=== PATIENT | female | born 1965 | race African-American/Black ===

== ENCOUNTER 2016-05-14 15:07 | Emergency (ER) | payer OTHER ==
[~2016-05-14] VITALS: Ht 157.5 cm; Wt 123.4 kg
[2016-05-14 15:09] VITALS: BP 149/103
[2016-05-14] MEDS ORDERED: DOXYCYCLINE 10100 MG PO (15:46)
== END 2016-05-14 15:51 | disposition home or self-care (01) ==
LOC: ER 15:07
DX: S01.91XD Laceration without foreign body of unspecified part of head, subsequent encounter (principal); X58.XXXD Exposure to other specified factors, subsequent encounter; I10 Essential (primary) hypertension; Z85.3 Personal history of malignant neoplasm of breast; Z90.13 Acquired absence of bilateral breasts and nipples; Z88.0 Allergy status to penicillin; Z88.1 Allergy status to other antibiotic agents; Z91.013 Allergy to seafood; Z88.8 Allergy status to other drugs, medicaments and biological substances

== ENCOUNTER 2016-11-09 13:01 | Emergency (ER) | payer OTHER ==
[~2016-11-09] VITALS: Ht 157.5 cm; Wt 145.2 kg
--- NOTE | ~2016-11-09 | EKG ---
[place] [address] [facility] [place] [address] ELECTROCARDIOGRAM REPORT Name: JOEL KAN Room #: DEP Usha#: [id number] Admission: 11/09/16 Attend Phys: Discharge: 11/09/16 Date of : 63 Report #: [id number] THIS REPORT FOR: //name// [facility] ED Test Date: 2016-11-09 Test Time: 13:44:33 Pat Name: JOEL KAN Department: Room: Gender: F Plant Reliability Engineer: : 1965 Requested By: Leonila Vázquez Order Number: [id number] MD: Gold Barragan Measurements Intervals [place] Rate: 108 P: 40 FL: 127 QRS: 3 QRSD: 91 T: 31 QT: 353 QTc: 473 Interpretive Statements Sinus tachycardia Otherwise normal tracing No previous ECG available for comparison Electronically Signed On 11-09-2016 17:21:13 CDT by Gold Barragan [email or web address] <ELECTRONICALLY SIGNED> By: Gold Barragan MD, [facility] 11/09/16 1721 1344 1344 Gold Barragan MD, FACC /EPI
[~2016-11-09 13:01] MED LIST: AMLODIPINE BESY10 MG PO; DOXYCYCLINE 10100 MG PO; IBRANCE100 MG PO; K-DUR 20 MEQ T20 MEQ PO; KEFLEX500 MG PO; LISINOPRIL40 MG PO
[2016-11-09 14:12] LABS: HEMATOCRIT 36.1 % (37.0-47.0); HEMOGLOBIN 12.2 gm/dL (12.0-15.0); MCH 35.3 pg (26.0-34.0); MCHC 33.8 g/dL (28.0-37.0); MCV 104.5 fL (80.0-100.0); PLATELET COUNT 223 thou/uL (150-400); RBC 3.46 mil/uL (4.20-5.00); RDW 16.7 % (10.5-14.5)
[2016-11-09 14:14] LABS: MANUAL DIFF YES
[2016-11-09 14:21] LABS: ANION GAP 7 mmol/L (7-16); BUN 11 mg/dL (7-18); CALCIUM 9.2 mg/dL (8.5-10.1); CHLORIDE 106 mmol/L (98-107); CO2 26 mmol/L (21-32); GLUCOSE 155 mg/dL (74-106); POTASSIUM 3.9 mmol/L (3.5-5.1); SODIUM 139 mmol/L (136-145)
[2016-11-09 14:28] LABS: APTT 22.7 Seconds (24.5-32.8)
[2016-11-09 14:30] LABS: TROPONIN-I < 0.04 ng/mL (<0.04-0.07)
[2016-11-09 14:38] LABS: ABSOLUTE NEUTROPHILS 2.4 thou/uL (1.4-8.2); TOTAL CELL COUNT 100
[2016-11-09 14:42] LABS: ANISOCYTOSIS 1+; MACROCYTES 1+
[2016-11-09 14:43] LABS: POLYCHROMASIA OCCASIONAL
[2016-11-09] MEDS ORDERED: DEXAMETHASONE1 MG PO (16:36)
[2016-11-09 16:48] VITALS: BP 133/71
== END 2016-11-09 16:50 | disposition home or self-care (01) ==
LOC: ER 13:01
PROVIDERS: Emergency Medicine
DX: G93.6 Cerebral edema (principal); R41.0 Disorientation, unspecified; I10 Essential (primary) hypertension; Z85.3 Personal history of malignant neoplasm of breast; Z85.841 Personal history of malignant neoplasm of brain; Z88.1 Allergy status to other antibiotic agents; Z91.041 Radiographic dye allergy status; Z88.0 Allergy status to penicillin; Z91.013 Allergy to seafood

== ENCOUNTER 2016-12-17 18:16 | Emergency (ER) | payer OTHER ==
[~2016-12-17] VITALS: Ht 157.5 cm; Wt 104.3 kg
--- NOTE | ~2016-12-17 | EKG ---
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
[~2016-12-17 18:16] MED LIST changes: +DEXAMETHASONE1 MG PO
[2016-12-17] MEDS ORDERED: CLEOCIN HCL150 MG PO (21:18)
[2016-12-17 21:20] LABS: HEMATOCRIT 38.1 % (37.0-47.0); HEMOGLOBIN 12.5 gm/dL (12.0-15.0); MANUAL DIFF YES; MCH 33.3 pg (26.0-34.0); MCHC 32.9 g/dL (28.0-37.0); MCV 101.3 fL (80.0-100.0); PLATELET COUNT 317 thou/uL (150-400); RBC 3.76 mil/uL (4.20-5.00); RDW 15.8 % (10.5-14.5); WBC 5.6 thou/uL (4.0-11.0)
[2016-12-17 21:34] LABS: CALCIUM 10.3 mg/dL (8.5-10.1); CREATININE 1.1 mg/dL (0.6-1.0); POTASSIUM 3.6 mmol/L (3.5-5.1)
[2016-12-17 21:40] LABS: ALBUMIN 3.4 g/dL (3.4-5.0); TOTAL BILIRUBIN 0.2 mg/dL (<0.1-1.0)
[2016-12-17 22:17] LABS: ABSOLUTE NEUTROPHILS 3.3 thou/uL (1.4-8.2); ANISOCYTOSIS SLIGHT; ATYPICAL LYMPHS 1 %; MACROCYTES SLIGHT; POLYCHROMASIA OCCASIONAL; TOTAL CELL COUNT 100
[2016-12-17 22:37] VITALS: BP 186/104
== END 2016-12-17 22:38 | disposition home or self-care (01) ==
LOC: ER 18:16
PROVIDERS: Nurse Practitioner Family
DX: K08.89 Other specified disorders of teeth and supporting structures (principal); R00.0 Tachycardia, unspecified; C79.31 Secondary malignant neoplasm of brain; I10 Essential (primary) hypertension; Z90.13 Acquired absence of bilateral breasts and nipples; Z85.3 Personal history of malignant neoplasm of breast; Z88.1 Allergy status to other antibiotic agents; Z88.0 Allergy status to penicillin; Z91.013 Allergy to seafood; Z88.8 Allergy status to other drugs, medicaments and biological substances

== ENCOUNTER 2016-12-20 07:18 | Emergency (ER) | payer OTHER ==
[~2016-12-20] VITALS: Ht 157.5 cm; Wt 113.4 kg
[~2016-12-20 07:18] MED LIST changes: +CLEOCIN HCL150 MG PO
[2016-12-20 08:34] VITALS: BP 141/61
== END 2016-12-20 08:30 | disposition home or self-care (01) ==
LOC: ER 07:18
DX: L03.811 Cellulitis of head [any part, except face] (principal); K02.9 Dental caries, unspecified; I10 Essential (primary) hypertension; Z90.13 Acquired absence of bilateral breasts and nipples; Z85.3 Personal history of malignant neoplasm of breast; Z85.841 Personal history of malignant neoplasm of brain; Z88.1 Allergy status to other antibiotic agents; Z88.0 Allergy status to penicillin; Z91.013 Allergy to seafood; Z88.8 Allergy status to other drugs, medicaments and biological substances

== ENCOUNTER 2017-06-14 18:51 | Emergency (ER) | payer OTHER ==
[~2017-06-14] VITALS: Ht 157.5 cm; Wt 108.9 kg
[~2017-06-14 18:51] MED LIST changes: +CITRATE OF MAG296 ML PO
[2017-06-14] MEDS ORDERED: MIRALAX17 GM PO (21:31)
[2017-06-14 21:37] VITALS: BP 149/77
== END 2017-06-14 21:38 | disposition home or self-care (01) ==
LOC: ER 18:51
DX: K59.00 Constipation, unspecified (principal); I10 Essential (primary) hypertension; Z85.3 Personal history of malignant neoplasm of breast; Z85.841 Personal history of malignant neoplasm of brain

== ENCOUNTER 2017-07-09 04:08 | Inpatient (IN) | payer OTHER ==
[~2017-07-09] VITALS: Ht 157.5 cm; Wt 107.5 kg
--- NOTE | ~2017-07-09 | HC ---
[facility] [place] [address] CONSULTATION Name: JOEL KAN Room #: 349-I ADM IN ..#: [id number] Admission: 07/09/17 Attend Phys: Nabeel Diallo MD Discharge: Date of : 63 Report #: [id number] THIS REPORT FOR: //name// CC: Nabeel Barraza REASON FOR CONSULTATION: I was asked to evaluate the patient concerning persistent leukocytosis. HISTORY OF PRESENT ILLNESS: The patient is a 51-year-old with known widely metastatic breast cancer, on chemotherapy program. I am unclear as to the specific agent that she is on. She has evidence of brain, lung, volume, liver metastases. She has had bilateral mastectomies. She has a right chest Pleur-evac for recurring malignant effusion. She has a Port-A-Cath in place. She presents on 07/09/2017 with lower abdominal suprapubic pain. She was found to have metastases of T10-T11 along with right iliac, sacrum and left pubic bony fracture. Her initial white count was 20,000. She has remained at this level for the past 3 days. She was given IV antibiotic therapy in the Emergency Room, now on vancomycin monotherapy. REVIEW OF SYSTEMS: Notes no rash. There has been no pain at her Port-A-Cath site. Mild intermittent nausea, no vomiting. Some constipation. No headache, pharyngitis symptoms, sore throat, dysphagia or odynophagia. No cough or sputum production. Has some mild discomfort in the right chest from her catheter, otherwise unremarkable. No cardiac issues. Her pain is mostly in the groins bilaterally. No peripheral edema. No dysuria or frequency. PAST MEDICAL HISTORY: Hypertension, breast cancer, constipation. MEDICATIONS: She has previously been on dexamethasone, but this has been discontinued. She remains on vancomycin, metformin, montelukast, enoxaparin, losartan, amlodipine, morphine p.r.n., hydromorphone p.r.n. ALLERGIES: AMOXICILLIN, IODINE, SHELLFISH, THE PATIENT COULD NOT REMEMBER THE REACTION. FAMILY HISTORY: Noncontributory. SOCIAL HISTORY: Nonsmoker, no significant alcohol intake. Worked for the [employer]. PHYSICAL EXAMINATION: VITAL SIGNS: Afebrile and hemodynamically stable. GENERAL: She is alert and cooperative, pleasant, in no acute distress. She is obese. HEENT: Unremarkable. NECK: Supple. [address] [address] CONSULTATION Name: JOEL KAN Room #: 349-I [facility].#: [id number] Admission: 07/09/17 Attend Phys: Nabeel Diallo MD Discharge: Date of : 63 Report #: [id number] CHEST: Right chest Port-A-Cath site unremarkable. HEART: Regular, without murmur. LUNGS: Decreased breath sound in the right posterior chest. Pleur-evac unremarkable. ABDOMEN: Soft, fullness in the right upper quadrant. No hepatosplenomegaly or mass identified. EXTREMITIES: Unremarkable. No pain in her hips. Mild pubic bone tenderness to palpation. No CVA tenderness. LABORATORY STUDIES: Chest x-ray, bilateral pulmonary nodules. CT of the abdomen shows pleural disease mostly on the right with a Pleur-evac in place. Multiple lung nodules, liver mets, bony mets, T10-T11, bony mets in sacrum, right iliac and a fracture of the left pubic bone. Sodium 140, potassium 3.6, bicarbonate 25, creatinine 0.6, AST 81, ALT 48, alkaline phosphatase 250, bilirubin 0.5. Hemoglobin 10.1, platelet count 232,000, white count is 20,000, 81% segs, 2% bands. Blood cultures are negative to date. Procalcitonin 0.3. Vancomycin trough 17. IMPRESSION: A 51-year-old with widely metastatic breast cancer and extensive disease involving the right pleural space. I am suspecting her metastatic cancer is the most likely cause of her persistent leukocytosis. There is no evidence of sepsis. We will also need to check the right chest fluid. It will be difficult to interpret with a chronic Pleur-Evac catheter. No evidence of other intra-abdominal infection. Liver metastasis is a common cause of leukocytosis, especially if we have tumor necrosis. No evidence of urinary tract infection. Doubt Port-A-Cath infection with negative blood cultures. RECOMMENDATIONS: We will obtain aspiration of the pleural fluid for analysis. Send for bacteria and fungal culture. Continue with antibiotic coverage including vancomycin and Levaquin after cultures obtained. I do note the patient has plans to [facility] in [place], [place]. I would like to sort this out before she transfers. I would also like to obtain her previous CBCs prior to this hospitalization to see how she has been running over the last several months. <ELECTRONICALLY SIGNED> By: Tim Chatman MD 07/12/17 1124 51 37 Tim Chatman MD /nt
[~2017-07-09 04:08] MED LIST changes: +MIRALAX17 GM PO
[2017-07-09 04:20] VITALS: BP 151/93
[2017-07-09] MEDS ORDERED: COZAAR 50 MG TA50 M2 PO (04:25)
[2017-07-09] MEDS ORDERED: VENTOLIN HFA 1818 GM INH (04:26)
[2017-07-09] MEDS ORDERED: GLUCOPHAGE XR500 MG PO (04:26)
[2017-07-09] MEDS ORDERED: NABUMETONE 500500 M1 PO (04:26)
[2017-07-09] MEDS ORDERED: ONDANSETRON ODT8 MG PO (04:27)
[2017-07-09] MEDS ORDERED: SINGULAIR 10 MG10 M1 PO (04:27)
[2017-07-09] MEDS ORDERED: COMPAZINE10 MG PO (04:27)
[2017-07-09] MEDS ORDERED: DILAUDID 2 MG TA2 MG PO (04:27)
[2017-07-09 05:00] LABS: HEMATOCRIT 30.8 % (37.0-47.0); HEMOGLOBIN 10.1 gm/dL (12.0-15.0); MCH 28.8 pg (26.0-34.0); MCHC 32.7 g/dL (28.0-37.0); MCV 88.1 fL (80.0-100.0); PLATELET COUNT 249 thou/uL (150-400); RDW 22.1 % (10.5-14.5); WBC 20.8 thou/uL (4.0-11.0)
[2017-07-09 05:09] LABS: CALCIUM 9.7 mg/dL (8.5-10.1); CREATININE 0.7 mg/dL (0.6-1.0); POTASSIUM 3.8 mmol/L (3.5-5.1)
[2017-07-09 05:15] LABS: ALBUMIN 3.1 g/dL (3.4-5.0); DIRECT BILIRUBIN 0.2 mg/dL (<0.1-0.3); TOTAL BILIRUBIN 0.5 mg/dL (<0.1-1.0); TOTAL PROTEIN 6.8 g/dL (6.4-8.2)
[2017-07-09 05:31] LABS: URINE BILIRUBIN NEGATIVE (Negative); URINE BLOOD NEGATIVE (Negative); URINE CLARITY CLEAR; URINE COLOR YELLOW; URINE GLUCOSE-RANDOM* NEGATIVE (Negative); URINE KETONES NEGATIVE (Negative); URINE LEUKOCYTES NEGATIVE (Negative); URINE NITRITE NEGATIVE (Negative); URINE PROTEIN (DIPSTICK) NEGATIVE (Negative); URINE UROBILINOGEN 0.2 E.U./dl (0.2-1.0)
[2017-07-09 05:50] LABS: ABSOLUTE NEUTROPHILS 17.5 thou/uL (1.4-8.2); ANISOCYTOSIS 2+; METAMYELOCYTES 1 %; MYELOCYTES 1 %
[2017-07-09 08:12] VITALS: BP 140/86
[2017-07-09 09:27] VITALS: BP 122/75
[2017-07-09 09:38] VITALS: BP 133/88
[2017-07-09 16:03] VITALS: BP 126/78
[2017-07-09 19:25] VITALS: BP 124/79
[2017-07-10 03:50] VITALS: BP 117/75
[2017-07-10 07:19] LABS: HEMATOCRIT 30.7 % (37.0-47.0); HEMOGLOBIN 9.8 gm/dL (12.0-15.0); MCH 28.5 pg (26.0-34.0); MCHC 31.8 g/dL (28.0-37.0); MCV 89.5 fL (80.0-100.0); RBC 3.43 mil/uL (4.20-5.00)
[2017-07-10 07:22] VITALS: BP 111/63
[2017-07-10 07:27] LABS: CALCIUM 8.9 mg/dL (8.5-10.1); CREATININE 0.7 mg/dL (0.6-1.0); POTASSIUM 3.7 mmol/L (3.5-5.1)
[2017-07-10 11:44] VITALS: BP 142/89
[2017-07-10 16:27] VITALS: BP 133/84
[2017-07-10 19:10] VITALS: BP 143/93
[2017-07-11 03:00] VITALS: BP 137/91
[2017-07-11 07:33] VITALS: BP 126/71
[2017-07-11 10:10] LABS: HEMATOCRIT 30.5 % (37.0-47.0); HEMOGLOBIN 10.1 gm/dL (12.0-15.0); MCH 28.7 pg (26.0-34.0); MCV 87.1 fL (80.0-100.0); PLATELET COUNT 232 thou/uL (150-400); RDW 21.7 % (10.5-14.5); WBC 20.4 thou/uL (4.0-11.0)
[2017-07-11 10:15] LABS: CREATININE 0.6 mg/dL (0.6-1.0); POTASSIUM 3.6 mmol/L (3.5-5.1)
[2017-07-11 10:51] LABS: ABSOLUTE NEUTROPHILS 16.9 thou/uL (1.4-8.2); METAMYELOCYTES 1 %; PLATELET ESTIMATE NORMAL
[2017-07-11 10:52] LABS: ANISOCYTOSIS 1+; POLYCHROMASIA 1+
[2017-07-11 11:05] VITALS: BP 125/78
[2017-07-11 16:47] VITALS: BP 132/82
[2017-07-11 20:34] VITALS: BP 151/89
[2017-07-12 03:50] VITALS: BP 106/66
[2017-07-12 06:31] LABS: HEMATOCRIT 31.7 % (37.0-47.0); MCH 28.4 pg (26.0-34.0); MCHC 31.7 g/dL (28.0-37.0); MCV 89.4 fL (80.0-100.0); RBC 3.54 mil/uL (4.20-5.00); RDW 21.9 % (10.5-14.5); WBC 20.9 thou/uL (4.0-11.0)
[2017-07-12 06:52] LABS: CALCIUM 9.2 mg/dL (8.5-10.1); CREATININE 0.8 mg/dL (0.6-1.0); POTASSIUM 3.7 mmol/L (3.5-5.1)
[2017-07-12 07:48] VITALS: BP 137/84
[2017-07-12] MEDS ORDERED: MIRALAX17 GM PO (08:43)
[2017-07-12] MEDS ORDERED: DILAUDID 2 MG TA2 MG PO (08:43)
[2017-07-12] MEDS ORDERED: COLACE 100 MG100 MG PO (08:43)
[2017-07-12 13:50] VITALS: BP 137/84
[2017-07-12 15:24] VITALS: BP 106/58
== END 2017-07-12 17:39 | disposition home or self-care (01) | DRG 871 ==
LOC: ER 04:08 → 3W 07:21 → EROBS 07:21 → 3W 09:13 → ENTRNSPT 07-12 17:28 → 3W 07-12 17:39
PROVIDERS: Emergency Medicine; Hospitalist
DX: A41.9 Sepsis, unspecified organism (principal); J18.9 Pneumonia, unspecified organism; M84.40XA Pathological fracture, unspecified site, initial encounter for fracture; I10 Essential (primary) hypertension; Z85.3 Personal history of malignant neoplasm of breast; Z90.13 Acquired absence of bilateral breasts and nipples; Z85.89 Personal history of malignant neoplasm of other organs and systems; Z79.899 Other long term (current) drug therapy; Z88.6 Allergy status to analgesic agent; Z88.1 Allergy status to other antibiotic agents; Z91.041 Radiographic dye allergy status
CPT/HCPCS: 10879